=== PATIENT | female | born 1985 | race Caucasian/White ===

== ENCOUNTER 2019-09-01 14:48 | Emergency (ER) | payer OTHER ==
[~2019-09-01] VITALS: Ht 157.5 cm; Wt 77.1 kg
[2019-09-01] MEDS ORDERED: PRENATAL + DHA1 EAC1 (16:07)
== END 2019-09-01 19:52 | disposition home or self-care (01) ==
LOC: ER 14:48
DX: O20.0 Threatened abortion (principal)

== ENCOUNTER 2019-09-06 09:36 | Outpatient (CLI) | payer OTHER ==
[~2019-09-06 09:36] MED LIST: PRENATAL + DHA1 EAC1
== END 2019-09-06 15:36 | disposition home or self-care (01) ==
LOC: OBS/DEL 09:36
DX: O03.6 Delayed or excessive hemorrhage following complete or unspecified spontaneous abortion (principal)